=== PATIENT | female | born 1980 | race Caucasian/White ===

== ENCOUNTER 2020-06-09 04:31 | Observation (INO) | payer BC, OTHER ==
[~2020-06-09] VITALS: Ht 165.1 cm; Wt 96.6 kg
[~2020-06-09 04:31] MED LIST: AMOX500 PO; CYCL10 PO; HYDACE5 PO
[2020-06-09 07:01] LABS: Anion Gap 5 mmol/L (6-16); Blood Urea Nitrogen 14 mg/dL (8-24); Bun/Creatinine Ratio 19.8 (12.0-20.0); CO2, Blood 27 mmol/L (21-32); Calcium, Blood 8.7 mg/dL (8.5-10.1); Chloride, Blood 106 mmol/L (98-108); Creatinine, Blood 0.71 mg/dL (0.40-1.00); Glomerular Filtration Rate >60 (60-); Glucose, Blood 94 mg/dL (70-99); Potassium, Blood 3.5 mmol/L (3.5-5.5); Sodium, Blood 138 mmol/L (136-145)
[2020-06-09] MEDS ORDERED: OMEP20ER PO (07:57)
--- NOTE | 2020-06-09 08:00 | NUR ---
Assumed Care Received report from JOHNIE Ralph RN. Patient arrived via gurney to room PCU 03. A/Ox4, independent. Minimal facial swelling noted, patient reports swelling has decreased significantly. Settled to room and call light near by. NAVARRO.
[2020-06-09] MEDS ORDERED: FAMO20 PO (12:10)
[2020-06-09] MEDS ORDERED: BENADRYL25 MG PO (12:10)
[2020-06-09] MEDS ORDERED: PRED20 PO ×2 (12:12→12:13)
--- NOTE | 2020-06-09 12:43 | NUR ---
Discharge Summary A/Ox4, pleasant and cooperative with care. Up independently. Reviewed discharge paperwork with patient, no questions at this time. Copy provided. IV removed, WNL. Personal belongings sent home. Meds faxed. Will be escorted by staff via w/c. Denies shortness of breath.
[2020-06-10 08:09] LABS: COMPLEMENT C3, SERUM 152 mg/dL (82-167); COMPLEMENT C4, SERUM 28 mg/dL (12-38)
== END 2020-06-09 12:55 | disposition home or self-care (01) ==
LOC: ER 04:31 → PCU 04:32
PROVIDERS: ADMIT Internal Medicine
DX: T78.3XXA Angioneurotic edema, initial encounter (principal)
CPT/HCPCS: 36415; 80048; 85651; 86141; 86160; 96372; 96374; 96375; 96376; 99285-25; A9270; G0378; J1200; J1650; J2405; J2930

== ENCOUNTER 2020-06-13 05:44 | Emergency (ER) | payer BC, OTHER ==
[~2020-06-13] VITALS: Ht 165.1 cm; Wt 96.6 kg
[~2020-06-13 05:44] MED LIST changes: +BENADRYL25 MG PO; +FAMO20 PO; +OMEP20ER PO; +PRED20 PO
[2020-06-13] MEDS ORDERED: Prednisone20 MG PO (07:10)
== END 2020-06-13 07:42 | disposition home or self-care (01) ==
LOC: ER 05:44
DX: L50.9 Urticaria, unspecified (principal); Z79.52 Long term (current) use of systemic steroids; Z79.899 Other long term (current) drug therapy
CPT/HCPCS: 96374; 99283-25; J1200; J7512

== ENCOUNTER → 2021-02-23 | Outpatient (CLI) | payer BC, OTHER ==
[~2021-02-23] MED LIST changes: +Prednisone20 MG PO
[2021-02-24 10:05] LABS: Candida species (DNA Probe) Negative (NEGATIVE); G. vaginalis (DNA Probe) Positive (NEGATIVE); T. vaginalis (DNA Probe) Negative (NEGATIVE)
[2021-02-25 19:06] LABS: CHLAMYDIA TRACHOMATIS, NAA Negative (Negative); HPV 16 Negative (Negative); HPV 18 Negative (Negative); HPV OTHER HR TYPES Negative (Negative)
== END | disposition home or self-care (01) ==
LOC: LAB SHORT 09:44 → LAB 09:44
PROVIDERS: Advanced Practice Midwife
DX: Z01.419 Encounter for gynecological examination (general) (routine) without abnormal findings (principal); Z11.3 Encounter for screening for infections with a predominantly sexual mode of transmission; N76.0 Acute vaginitis
CPT/HCPCS: 87480; 87491; 87510; 87591; 87624; 87660; G0123

== ENCOUNTER 2024-10-07 | Day surgery (SDC) | payer BC, OTHER ==
[~2024-10-07] VITALS: Ht 165.1 cm; Wt 104.7 kg
[~2024-10-07] MED LIST changes: +MELO7.5 PO
[2024-10-07] MEDS ORDERED: propofoL 50 ML IV ONE (06:04)
[2024-10-07] MEDS ORDERED: Lactated Ringer's 1,000 ML IV SCH (06:15)
[2024-10-07 06:43] VITALS: BP 152/85
--- NOTE | 2024-10-07 06:46 | NUR ---
AMBULATORY INTO SDS. PT DENIES PAIN. HISTORY AND ALLERGIES REVIEWED. LUNGS CLEAR. SBP 150'S. PT REPORTS FEELING ANXIOUS. NPO STATUS CONFIRMED. BOWEL PREP CONFIRMED. PT RIDE HOME CONFIRMED.
[2024-10-07] MEDS ORDERED: Lactated Ringer's 1,000 ML IV ONE (06:55)
--- NOTE | 2024-10-07 07:29 | NUR ---
10/07/24 0729 Deborah Read History, Chart, Medications and Allergies reviewed before start of procedure. MONITOR INTACT WITH CONTINUOUS PULSE OXIMETRY, CONTINUOUS END TITAL CO2, 3-LEAD EKG AND INTERMITTENT BLOOD PRESSURE. O2 VIA POM INTACT THROUGHOUT SEDATION/PROCEDURE. See Anesthesia record FROM DR. CH
[2024-10-07 08:01] VITALS: BP 124/96
--- NOTE | 2024-10-07 08:19 | NUR ---
Discharge instructions reviewed with patient. Patient verbalizes understanding. Copy given to patient to take home. Patient States Post-Procedure ride home has been arranged. Discharged via wheelchair to private car for ride home.
== END 2024-10-07 08:19 | disposition home or self-care (01) ==
LOC: ORSCMMR → ORD 07:30 → ORSCMMR 08:19
PROVIDERS: Internal Medicine Gastroenterology
PROC: 0DBK8ZX Excision of Ascending Colon, Via Natural or Artificial Opening Endoscopic, Diagnostic (ICD-10-PCS; principal; 2024-10-07 07:30)
PROC: 0DBN8ZX Excision of Sigmoid Colon, Via Natural or Artificial Opening Endoscopic, Diagnostic (ICD-10-PCS; principal; 2024-10-07 07:30)
PROC: 0DBL8ZX Excision of Transverse Colon, Via Natural or Artificial Opening Endoscopic, Diagnostic (ICD-10-PCS; principal; 2024-10-07 07:30)
DX: Z12.11 Encounter for screening for malignant neoplasm of colon (principal); K63.5 Polyp of colon; K64.8 Other hemorrhoids; I10 Essential (primary) hypertension; E66.9 Obesity, unspecified; Z68.38 Body mass index [BMI] 38.0-38.9, adult; Z79.899 Other long term (current) drug therapy
CPT/HCPCS: 88305; J2704; J7120

== ENCOUNTER 2024-10-28 19:34 | Emergency (ER) | payer BC, OTHER ==
[~2024-10-28] VITALS: Ht 165.1 cm; Wt 99.8 kg
[2024-10-28] MEDS ORDERED: EpiNEPhrine 1 MG/1 ML 1ML Vial IM ONE (20:00)
[2024-10-28] MEDS ORDERED: DiphenhydrAMINE HCl 50 MG/ML 1ML Vial IV ONE (20:00)
[2024-10-28 22:00] VITALS: BP 154/74
[2024-10-28] MEDS ORDERED: EPIPEN 2-P0.3 MG/0.1 IM (22:17)
== END 2024-10-28 22:21 | disposition home or self-care (01) ==
LOC: ER 19:34
DX: T63.441A Toxic effect of venom of bees, accidental (unintentional), initial encounter (principal); R22.0 Localized swelling, mass and lump, head; I10 Essential (primary) hypertension; Z91.030 Bee allergy status; Z79.1 Long term (current) use of non-steroidal anti-inflammatories (NSAID); Z79.899 Other long term (current) drug therapy
CPT/HCPCS: 96372-59; 96374; 96375; 99284-25; J0165; J1200; J2919